=== PATIENT | male | born 1995 | race Caucasian/White ===

== ENCOUNTER 2017-01-31 20:18 | Emergency (ER) | payer SELFPAY ==
[2017-01-31] MEDS ORDERED: Ketorolac 60 MG/2 ML SDV IM ONE ×2 (20:25)
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
[2017-01-31 21:37] VITALS: BP 150/97
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
== END 2017-01-31 21:37 | disposition home or self-care (01) ==
LOC: MW.ED 20:18
DX: S60.221A Contusion of right hand, initial encounter (principal); W22.8XXA Striking against or struck by other objects, initial encounter; Z88.5 Allergy status to narcotic agent
CPT/HCPCS: 73120; 96372; 99283; J1885; L3807

== ENCOUNTER 2017-04-07 01:40 | Emergency (ER) | payer SELFPAY ==
[2017-04-07] MEDS ORDERED: Sodium Chloride 0.9% 2,000 ML IV ONE (01:47)
[2017-04-07] MEDS ORDERED: LORazepam 2 MG/ML MDV IVPUSH ONE (01:56)
[2017-04-07] MEDS ORDERED: Sodium Chloride 0.9% 1,000 ML IV ONE (01:57)
[2017-04-07] MEDS ORDERED: Sodium Chloride 0.9% 1,000 ML IV SCH (02:00)
--- NOTE | 2017-04-07 02:01 | EDM.PDOCBH ---
ED HPI GENERAL MEDICAL PROBLEM - General Chief Complaint: Drug or Alcohol Abuse Stated Complaint: OVERDOSE Time Seen by Provider: 04/07/17 01:55 Source of Information: Reports: Patient, EMS, Police History Limitations: Reports: No Limitations - History of Present Illness INITIAL COMMENTS - FREE TEXT/NARRATIVE: HISTORY AND PHYSICAL: History of present illness: []22-year-old male brought in by EMS after admitting to police that he used methamphetamines. Patient called the police to tell them that he and other people were using methamphetamines in his apartment. Patient was then arrested. He has been "tweaking. ". EMS was called and he was brought to the emergency department for evaluation and treatment as needed and medical clearance and possible. Patient denies depression overdose, self injury, SI or HI. He states he does also enjoy some marijuana Review of systems: As per history of present illness and below otherwise all systems reviewed and negative. Past medical history: As per history of present illness and as reviewed below otherwise noncontributory. Surgical history: As per history of present illness and as reviewed below otherwise noncontributory. Social history: No reported history of drug or alcohol abuse. Family history: As per history of present illness and as reviewed below otherwise noncontributory. Physical exam: Patient anxious tachycardic "tweaking "no specific complaints HEENT: Atraumatic, normocephalic, pupils reactive, negative for conjunctival pallor or scleral icterus, mucous membranes moist, throat clear, neck supple, nontender, trachea midline. Lungs: Clear to auscultation, breath sounds equal bilaterally, chest nontender. Heart: S1S2, regular, negative for clicks, rubs, or JVD. Abdomen: Soft, nondistended, nontender. Negative for masses or hepatosplenomegaly. Negative for costovertebral tenderness. Pelvis: Stable nontender. Genitourinary: Deferred. Rectal: Deferred. Extremities: Atraumatic, negative for cords or calf pain. Neurovascular unremarkable. Neuro: Awake, alert, oriented. Cranial nerves II through XII unremarkable. Cerebellum unremarkable. Motor and sensory unremarkable throughout. Exam nonfocal. Diagnostics: [EKG Chest x-ray Labs] Therapeutics: [IV fluids and Ativan] Impression: [Methamphetamine abuse Methamphetamine intoxication Tachycardia] Severe anxiety Plan: [Signs and symptoms consistent with metastases abuse. Anxious tweaking tachycardic. Benzos administered as well as IV fluids full workup pending] On reevaluation prior to discharge patient alert smiling communicative sitting up on his bed conversing with police. Asymptomatic heart rate under 100. Vital signs stable nonfocal neuro no further workup or treatment indicated. Patient agrees with outpatient follow-up and strict return precautions given Definitive disposition and diagnosis as appropriate pending reevaluation and review of above. denies any pain Pain Score (Numeric/FACES): 0 - Related Data Allergies Allergy/AdvReac Type Severity Reaction Status Date / Time hydrocodone Allergy Rash Verified 04/07/17 01:49 Home Meds: Home Meds ClonazePAM [KlonoPIN] 1 mg PO BID 01/31/17 [History] Dextroamphetamine/Amphetamine [Adderall] 30 mg PO BID 01/31/17 [History] Past Medical History HEENT History: Reports: None Cardiovascular History: Reports: None Respiratory History: Reports: None Gastrointestinal History: Reports: None Genitourinary History: Reports: None Musculoskeletal History: Reports: None Neurological History: Reports: None Psychiatric History: Reports: ADHD, Anxiety, Depression, PTSD Endocrine/Metabolic History: Reports: None Hematologic History: Reports: None Oncologic (Cancer) History: Reports: None Dermatologic History: Reports: None - Infectious Disease History Infectious Disease History: Reports: None - Past Surgical History HEENT Surgical History: Reports: Oral Surgery Musculoskeletal Surgical History: Reports: Other (See Below) Other Musculoskeletal Surgeries/Procedures:: surgery to right hand Social & Family History - Family History Family Medical History: Noncontributory - Tobacco Use Smoking Status *Q: Current Every Day Smoker Years of Tobacco use: 1 Packs/Tins Daily: 0.4 - Caffeine Use Caffeine Use: Reports: Soda - Recreational Drug Use Recreational Drug Use: No ED ROS GENERAL - Review of Systems Review Of Systems: See Below (History of present illness) ED EXAM, BEHAVIORAL HEALTH - Physical Exam Exam: See Below (History of present illness) COURSE, BEHAVIORAL HEALTH COMP - Course Vital Signs: Last Vital Signs Temp 37.1 C 04/07/17 01:45 Pulse 148 H 04/07/17 01:45 Resp 28 H 04/07/17 01:45 BP 152/81 H 04/07/17 01:45 Pulse Ox 100 04/07/17 01:45 Orders, Labs, Meds: Active Orders 24 hr Category Date Time Status EKG Documentation Completion [RC] STAT Care 04/07/17 01:56 Active Chest 1V Frontal [CR] Stat Exams 04/07/17 02:03 Taken DRUG SCREEN, URINE [URCHEM] Stat Lab 04/07/17 03:00 Received Sodium Chloride 0.9% [Normal Saline] 2,000 ml Med 04/07/17 01:47 Active IV .Bolus Medication Orders Sodium Chloride (Normal Saline) 2,000 mls @ 999 mls/hr IV .Bolus ONE Stop: 04/07/17 03:47 Last Admin: 04/07/17 01:54 Dose: 999 mls/hr Laboratory Tests 04/07/17 04/07/17 Range/Units 01:55 01:55 WBC 14.98 H (4.0-11.0) K/uL RBC 5.07 (4.50-5.90) M/uL Hgb 15.9 (13.0-17.0) g/dL Hct 44.9 (38.0-50.0) % MCV 88.6 (80.0-98.0) fL MCH 31.4 (27.0-32.0) pg MCHC 35.4 (31.0-37.0) g/dL RDW Std Deviation 41.7 (28.0-62.0) fl RDW Coeff of Ahmet 13 (11.0-15.0) % Plt Count 303 (150-400) K/uL MPV 9.80 (7.40-12.00) fL Neut % (Auto) 71.8 (48.0-80.0) % Lymph % (Auto) 22.1 (16.0-40.0) % [place] % (Auto) 5.9 (0.0-15.0) % Eos % (Auto) 0.0 (0.0-7.0) % Baso % (Auto) 0.2 (0.0-1.5) % Neut # (Auto) 10.8 H (1.4-5.7) K/uL Lymph # (Auto) 3.3 H (0.6-2.4) K/uL [place] # (Auto) 0.9 H (0.0-0.8) K/uL Eos # (Auto) 0.0 (0.0-0.7) K/uL Baso # (Auto) 0.0 (0.0-0.1) K/uL Nucleated RBC % 0.0 /100WBC Nucleated RBCs # 0 K/uL Sodium 138 (136-146) mmol/L Potassium 3.7 (3.5-5.1) mmol/L Chloride 103 (98-110) mmol/L Carbon Dioxide 19 L (21-31) mmol/L BUN 8 (6.0-23.0) mg/dL Creatinine 1.3 (0.6-1.5) mg/dL Est Cr Clr Drug Dosing 86.07 mL/min Estimated GFR (MDRD) > 60.0 ml/min Glucose 123 H (60-110) mg/dL Calcium 9.8 (8.8-10.8) mg/dL Salicylates < 5.0 (0-20) mg/dL Acetaminophen < 3.0 ug/mL Medications Generic Name Dose Route Start Last Admin Trade Name Freq PRN Reason Stop Dose Admin Sodium Chloride 2,000 mls @ 999 mls/hr 04/07/17 01:47 04/07/17 01:54 Normal Saline IV 04/07/17 03:47 999 mls/hr .Bolus ONE Administration Discontinued Medications Generic Name Dose Route Start Last Admin Trade Name Freq PRN Reason Stop Dose Admin Sodium Chloride 1,000 mls @ 125 mls/hr 04/07/17 02:00 Normal Saline IV STAT ROSA M Sodium Chloride 1,000 mls @ 999 mls/hr 04/07/17 01:57 04/07/17 03:15 Normal Saline IV 04/07/17 02:57 Not Given STAT ONE Lorazepam 1 mg 04/07/17 01:56 04/07/17 02:01 Ativan IVPUSH 04/07/17 01:57 1 mg ONETIME ONE Administration Departure - Departure Time of Disposition: 03:35 Disposition: Home, Self-Care 01 Condition: Good Clinical Impression: Methamphetamine abuse, Tachycardia - Discharge Information Forms: ED Department Discharge Additional Instructions: Obviously any medical professional would recommend that you not abuse methamphetamines. Be aware that even a single use of methamphetamines could result in or permanent disability. your side effects from methamphetamine use have improved. Rest and drink plenty of fluids. If you have any discomfort take Motrin and Tylenol as needed. Follow-up with your DrJuan F in one to 2 days and return immediately for new severe or worsening symptoms - My Orders Last 24 Hours: My Active Orders 04/07/17 01:47 Sodium Chloride 0.9% [Normal Saline] 2,000 ml IV .Bolus 04/07/17 01:56 EKG Documentation Completion [RC] STAT 04/07/17 02:03 Chest 1V Frontal [CR] Stat 04/07/17 03:00 DRUG SCREEN, URINE [URCHEM] Stat - Assessment/Plan Last 24 Hours: My Active Orders 04/07/17 01:47 Sodium Chloride 0.9% [Normal Saline] 2,000 ml IV .Bolus 04/07/17 01:56 EKG Documentation Completion [RC] STAT 04/07/17 02:03 Chest 1V Frontal [CR] Stat 04/07/17 03:00 DRUG SCREEN, URINE [URCHEM] Stat
[2017-04-07 02:30] LABS: CHLORIDE,CL 103 mmol/L (98-110); SODIUM,NA 138 mmol/L (136-146)
[2017-04-07 02:34] LABS: ACETAMINOPHEN < 3.0 ug/mL
[2017-04-07 03:57] VITALS: BP 141/99
[2017-04-07] MEDS ORDERED: Propofol 200 MG/20 ML SDV ONE ×2 (14:21→14:34)
[2017-04-07] MEDS ORDERED: Midazolam 1 MG/ML 2 ML SDV ONE (14:34)
[2017-04-07] MEDS ORDERED: Lidocaine 2% 5 ML SDV ONE (14:34)
[2017-04-07] MEDS ORDERED: fentaNYL 100 MCG/2 ML SDV ONE (14:34)
--- NOTE | 2017-04-07 15:16 | CR ---
EXAM DATE: 04/07/17 PATIENT'S AGE: 22 Patient: REENA CHASE Facility: [place], [place] Site . Site : 1995 Study: XRay Chest [id number]/7/2017 2:24:50 AM Ordering Physician: Vitor Garsia Final Report: Indication: Tachycardia Technique: Chest 1 view Comparison: None Findings/Impression: Cardiovascular and mediastinum: Heart size and vasculature are normal in caliber and appearance. Mediastinum is within normal limits. Lungs and pleural space: Lungs are clear. No sign of infiltrate or mass. No sign of pleural effusion. No pneumothorax. Bones and soft tissues: No significant findings. Dictated by Lashawn Albert MD @ Apr 07 2017 2:50AM (Electronic Signature) Report Signed by Proxy. [facility]
== END 2017-04-07 03:50 | disposition home or self-care (01) ==
LOC: MW.ED 01:40
DX: F15.10 Other stimulant abuse, uncomplicated (principal); R00.0 Tachycardia, unspecified; F41.9 Anxiety disorder, unspecified; F17.210 Nicotine dependence, cigarettes, uncomplicated; Z88.5 Allergy status to narcotic agent
CPT/HCPCS: 71010; 80048; 80305; 85025; 93005; 96361; 96374; 99285; G0480; J2060; J2250; J3010; J7040; 99284; J2704